=== PATIENT | male | born 1995 | race Caucasian/White ===

== ENCOUNTER 2017-11-25 15:14 | Emergency (ER) | payer BC ==
--- NOTE | 2017-11-25 15:42 | Emergency Department Record ---
History of Present Illness - General Stated complaint: RT WRIST FOREARM PAIN Time Seen by Provider: 11/25/17 15:38 Source: Patient Mode of Arrival: Ambulatory Limitations: No limitations - History of Present Illness Initial comments: 22 yo male presents with right wrist pain since noon. He was starting an old tractor that has a front crank arm. The crank spun suddenly injuring his right wrist. Since noon he has had pain. No lacerations. Intact skin. He continued to work but the pain did not get better. Right handed. MD Complaint: Extremity pain, Joint pain, Joint swelling -: Hour(s) (4) Location: Right, Arm -: Yes Arthralgia Radiation: Distal Quality: Aching Consistency: Constant Improves with: Elevation, Immobilization Worsens with: Palpation, Weight bearing Associated Symptoms: Denies other symptoms - Related Data Previous Rx's Medication Instructions Recorded Hydrocodone/Acetaminophen [[place] 1 each PO Q6H #12 tablet 11/25/17 5-325 Tablet] Allergies Allergy/AdvReac Type Severity Reaction Status Date / Time No Known Drug Allergies Allergy Verified 11/25/17 15:46 Review of Systems Constitutional: Denies: Chills, Fever, Malaise, Weakness Eyes: Denies: Eye discharge ENT: Denies: Congestion, Throat pain Respiratory: Denies: Cough, Dyspnea Cardiovascular: Denies: Chest pain, Syncope Endocrine: Denies: Fatigue Gastrointestinal: Denies: Abdominal pain, Diarrhea, Nausea, Vomiting Genitourinary: Denies: Dysuria, Frequency, Hematuria Musculoskeletal: Reports: As per HPI, Arthralgia. Denies: Back pain, Neck pain Skin: Denies: Bruising, Change in color, Rash Neurological: Denies: Headache, Numbness, Weakness Psychiatric: Denies: Anxiety Hematological/Lymphatic: Denies: Blood Clots, Easy bleeding, Easy bruising Physical Exam - General General Appearance: Alert, Oriented x3, Cooperative, No acute distress Limitations: No limitations - Head Head exam: Atraumatic, Normocephalic, Normal inspection - Eye Eye exam: Normal appearance. negative: Conjunctival injection, Scleral icterus - ENT ENT exam: Normal exam, Mucous membranes moist Ear exam: Normal external inspection Nasal Exam: Normal inspection Mouth exam: Normal external inspection - Neck Neck exam: Normal inspection - Cardiovascular Peripheral Pulses: 2+: Radial (R) - Extremities Extremities exam: Joint swelling, Tenderness. negative: Normal inspection, Full ROM Image of Hand: 1 - swelling (mild) tenderness, intact skin, no deformity - Neurological Neurological exam: Alert, Normal gait, Oriented X3. negative: Altered, Motor sensory deficit - Psychiatric Psychiatric exam: Normal affect, Normal mood - Skin Skin exam: Dry, Intact, Normal color, Warm Course - Reevaluation(s) Reevaluation #1: The patient declined any pain medication at this time 11/25/17 15:42 XR demonstrated a distal, non displaced intraarticular radius fracture, no ulnar injury. The patient will be splint and referred for follow up to the ortho specialty clinic 11/25/17 16:25 11/25/17 16:41 We discussed non lifting, weight bearing, or use of the right hand until cleared Disposition Disposition: Discharge Clinical Impression: Radius distal fracture Qualifiers: Encounter type: initial encounter Fracture type: closed Fracture morphology: unspecified fracture morphology Laterality: right Qualified Code(s): S52.501A - Unspecified fracture of the lower end of right radius, initial encounter for closed fracture Disposition: Home, Self-Care Condition: (1) Good Instructions: Wrist Fracture in Adults (ED) Additional Instructions: Ice and elevated to minimize swelling. Ice 4 times daily. No use of the right hand/wrist until cleared by your doctor or othopedics Prescriptions: Hydrocodone/Acetaminophen [[place] 5-325 Tablet] 1 each PO Q6H #12 tablet Referrals: ROSALBA LUCIA [DOCTOR OF OSTEOPATH] - [facility] Special[facility] [Provider Group] Forms: Patient Portal Access Time of Disposition: 16:45 Quality - Quality Measures Quality Measures: N/A - Blood Pressure Screening Does Patient Have Any of the Following: No Blood Pressure Classification: Pre-Hypertensive BP Reading Systolic Measurement: 137 Diastolic Measurement: 81 Screening for High Blood Pressure: < Pre-Hypertensive BP, F/U Documented > [ [id number]] Pre-Hypertensive Follow-up Interventions: Referral to alternative/primary care provider.
--- NOTE | 2017-11-27 14:37 | RADIOLOGY REPORT ---
EXAM: WRIST, RIGHT 3 VIEWS HISTORY: INJURY. TECHNIQUE: Three views of the right wrist. COMPARISON: None. FINDINGS: There is a nondisplaced intraarticular fracture deformity of the distal radial metaphysis with associated soft tissue swelling. No dislocation. IMPRESSION: NONDISPLACED DISTAL RADIUS FRACTURE WITH SOFT TISSUE SWELLING. JOB NUMBER: [id number] [facility]
== END 2017-11-25 17:09 | disposition home or self-care (01) ==
LOC: ER 15:14
DX: S52.501A Unspecified fracture of the lower end of right radius, initial encounter for closed fracture (principal); W22.8XXA Striking against or struck by other objects, initial encounter; F17.210 Nicotine dependence, cigarettes, uncomplicated
CPT/HCPCS: 99283